=== PATIENT | male | born 1945 | race Hispanic/Latino ===

== ENCOUNTER → 2017-09-16 | Outpatient (CLI) | payer MEDICARE ==
[~2017-09-16] MED LIST: AMLO1CAP11 PO; ASPI-1181 PO; CYAN500 PO; FURO20TA4 PO; IOPAMIDOL-370 75 ML VIAL IV ONE; LISI-617 PO; METF10004 PO; OMEP40CA37 PO; POTA-9 PO; PREG50 PO; PROP60SR PO; ROSU10TA35 PO; TAMS0.4C32 PO; iron PO
== END | disposition home or self-care (01) ==
LOC: RAH 09:45
PROVIDERS: ATTEND Internal Medicine Gastroenterology
DX: K80.20 Calculus of gallbladder without cholecystitis without obstruction (principal); K74.60 Unspecified cirrhosis of liver
CPT/HCPCS: 74170; Q9967

== ENCOUNTER → 2018-03-22 | Outpatient (CLI) | payer MEDICARE ==
[~2018-03-22] MED LIST changes: +GADODIAMIDE 10 MMOL/20 ML ML IV ONE; -IOPAMIDOL-370 75 ML VIAL IV ONE; +METF-446 PO; -METF10004 PO; +ROSU10TA27 PO; -ROSU10TA35 PO
== END | disposition home or self-care (01) ==
LOC: RAH 07:32
PROVIDERS: ATTEND Internal Medicine Gastroenterology
DX: K80.20 Calculus of gallbladder without cholecystitis without obstruction (principal); K76.89 Other specified diseases of liver; K74.60 Unspecified cirrhosis of liver; I10 Essential (primary) hypertension; E11.9 Type 2 diabetes mellitus without complications; I25.10 Atherosclerotic heart disease of native coronary artery without angina pectoris; Z87.891 Personal history of nicotine dependence
CPT/HCPCS: 74183; A9579

== ENCOUNTER 2018-07-03 11:02 | Emergency (ER) | payer MEDICARE ==
[~2018-07-03 11:02] MED LIST changes: -GADODIAMIDE 10 MMOL/20 ML ML IV ONE
[2018-07-03] MEDS ORDERED: ACETAMINOPHEN 325 MG TAB ONE (11:25)
[2018-07-03 11:51] LABS: APPEARANCE,URINE Clear (CLEAR); BILIRUBIN,URINE Negative (NEGATIVE); COLOR,URINE Yellow (YELLOW); GLUCOSE, URINE (UA) Negative (NEGATIVE); KETONES,URINE Negative (NEGATIVE); LEUKOCYTE ESTERASE ,URINE Negative (NEGATIVE); NITRATE,URINE Negative (NEGATIVE); OCCULT BLOOD,URINE Negative (NEGATIVE); PH,URINE 7.5 (5.0-8.0); PROTEIN,URINE Negative (NEGATIVE); UROBILINOGEN,URINE 0.2 mg/dL (0.2-1.0)
== END 2018-07-03 12:26 | disposition home or self-care (01) ==
LOC: EDH 11:02
DX: B34.9 Viral infection, unspecified (principal); I10 Essential (primary) hypertension; E11.9 Type 2 diabetes mellitus without complications; I25.10 Atherosclerotic heart disease of native coronary artery without angina pectoris; Z79.4 Long term (current) use of insulin
CPT/HCPCS: 81003; 87804

== ENCOUNTER 2018-07-10 19:21 | Inpatient (IN) | payer MEDICARE ==
[~2018-07-10] VITALS: Ht 177.8 cm; Wt 92.3 kg
[2018-07-10 20:08] LABS: BASOPHILS % (AUTO) 0.6 % (0.0-5.0); EOSINOPHILS % (AUTO) 1.6 % (0.0-8.0); HEMATOCRIT 24.2 % (42-54); LYMPHOCYTES % (AUTO) 14.1 % (21.0-51.0); MEAN CORPUSCULAR HEMOGLOBIN 28.8 pg (27.0-33.0); MEAN CORPUSCULAR HGB CONC 33.1 g/dL (32.0-36.0); MEAN CORPUSCULAR VOLUME 87.1 fL (79-99); MONOCYTES % (AUTO) 4.4 % (3.0-13.0); NEUTROPHILS % (AUTO) 79.3 % (40.0-77.0); PLATELET COUNT (AUTO) 146 K/uL (130-400); RED BLOOD CELL COUNT(AUTO) 2.78 MIL/uL (4.50-6.20); RED CELL DISTRIBUTION WIDTH 13.3 % (11.0-15.5); WHITE BLOOD COUNT (AUTO) 8.5 K/uL (4.8-10.8)
[2018-07-10 20:36] LABS: ALBUMIN 3.3 g/dL (3.5-5.0); BILIRUBIN,TOTAL 0.3 mg/dL (0.2-1.0); CREATININE 1.1 mg/dL (0.5-1.5); TOTAL PROTEIN, SERUM 6.7 g/dL (6.0-8.3)
[2018-07-10 20:53] LABS: INR 1.05 (0.85-1.15); PARTIAL THROMBOPLASTIN TIME 24.6 SEC (26.3-35.5)
[2018-07-10] MEDS: SODIUM CHLORIDE 0.9% 1000ML 1,000 ML IV SCH (23:33)
[2018-07-10] MEDS ORDERED: DEXTROSE 50%-WATER 50 ML DISP.SYRIN IV PRN (23:45)
[2018-07-10] MEDS ORDERED: ONDANSETRON HCL 4 MG/2 ML VIAL IV PRN (23:45)
[2018-07-10] MEDS ORDERED: GLUCAGON 1MG KIT 1 MG ML IM PRN (23:45)
[2018-07-11] VITALS (22 sets, daily range): BP systolic 104–169; BP diastolic 57–101
[2018-07-11] MEDS: IBUPROFEN 200 MG TAB PO PRN ×3 (03:30→21:04)
[2018-07-11] MEDS: INSULIN HUMULIN R 100 UNIT/ML 3ML SQ SCH ×4 (06:00→21:03)
[2018-07-11] MEDS ORDERED: PANTOPRAZOLE 40 MG/VIAL IVP SCH (09:00)
[2018-07-11] MEDS ORDERED: DIATR MEGLU/DIATRIZOATE SODIUM 30 ML BOTTLE ONE (09:56)
[2018-07-11 09:57] LABS: BASOPHILS % (AUTO) 0.7 % (0.0-5.0); EOSINOPHILS % (AUTO) 2.3 % (0.0-8.0); HEMATOCRIT 21.2 % (42-54); LYMPHOCYTES % (AUTO) 22.4 % (21.0-51.0); MEAN CORPUSCULAR HEMOGLOBIN 29.5 pg (27.0-33.0); MEAN CORPUSCULAR HGB CONC 33.7 g/dL (32.0-36.0); MEAN CORPUSCULAR VOLUME 87.6 fL (79-99); MONOCYTES % (AUTO) 6.5 % (3.0-13.0); NEUTROPHILS % (AUTO) 68.1 % (40.0-77.0); PLATELET COUNT (AUTO) 107 K/uL (130-400); RED BLOOD CELL COUNT(AUTO) 2.41 MIL/uL (4.50-6.20); RED CELL DISTRIBUTION WIDTH 13.3 % (11.0-15.5); WHITE BLOOD COUNT (AUTO) 7.2 K/uL (4.8-10.8)
[2018-07-11 10:03] LABS: POTASSIUM 5.1 mmol/L (3.5-5.1)
[2018-07-11] MEDS: SODIUM CHLORIDE 0.9% 1000ML 1,000 ML IV SCH (10:05)
[2018-07-11] MEDS ORDERED: PROPOFOL 10 MG/ML 20ML VIAL IV ONE (12:38)
[2018-07-11] MEDS ORDERED: LACTULOSE 20 GM/30 ML UDCUP PO SCH ×2 (13:00→14:00)
--- NOTE | 2018-07-11 13:36 | NUR ---
POST PROCEDURE PATIENT RECEIVED FROM PACU VIA HOSPITAL BED IN STABLE CONDITION. DR. ANAYA CALLED WITH FINDINGS AND RECOMMENDATIONS. POST OP VITAL SIGNS HAVE BEEN INITIATED. REORIENTED TO ROOM AND USE OF CALL LIGHT. BED IS IN LOWEST POSITION AND LOCKED.
[2018-07-11] MEDS: PREGABALIN 75 MG CAPSULE PO SCH ×2 (14:08→21:04)
[2018-07-11] MEDS ORDERED: MAGNESIUM CITRATE 296 ML SOLUTION PO SCH ×2 (15:00→16:00)
--- NOTE | 2018-07-11 15:29 | NUR ---
D/C PLAN CM spoke to pt regarding d/c planning. pt is ind. and lives alone. States sister in law assists as needed. Pt asked about provider services arrangements. CM notified to f/u with PCP Dr. Morales post hospital discharge for evaluation and arrangements. Pt states his sister in law has been assisting with transportation. Pt uses wk for ambulation. No other needs verbalized or identified. plan to home. CM to f/u Addendum: 07/11/18 at 1531 by JULIA FLANAGAN CM Amended: Links added.
[2018-07-11] MEDS ORDERED: PEG 3350/NA SULF,BICARB,CL/KCL 4000 ML SOLN PO SCH (16:00)
[2018-07-11] MEDS ORDERED: FERROUS SULFATE 325 MG TABLET.DR PO SCH (17:00)
[2018-07-11] MEDS ORDERED: TAMSULOSIN HCL 0.4 MG CAP.ER.24H PO SCH (21:00)
[2018-07-11] MEDS ORDERED: FUROSEMIDE 20 MG TABLET PO SCH (21:00)
[2018-07-11] MEDS ORDERED: ATORVASTATIN CALCIUM 20 MG TABLET PO SCH (21:00)
[2018-07-11] MEDS ORDERED: INDERAL 60 MG PO SCH (21:00)
[2018-07-12 04:00] VITALS: BP 125/66
[2018-07-12] MEDS: INSULIN HUMULIN R 100 UNIT/ML 3ML SQ SCH (05:51)
[2018-07-12 06:57] LABS: BASOPHILS % (AUTO) 0.7 % (0.0-5.0); EOSINOPHILS % (AUTO) 3.8 % (0.0-8.0); HEMATOCRIT 22.1 % (42-54); LYMPHOCYTES % (AUTO) 31.5 % (21.0-51.0); MEAN CORPUSCULAR HEMOGLOBIN 28.8 pg (27.0-33.0); MEAN CORPUSCULAR VOLUME 87.1 fL (79-99); MONOCYTES % (AUTO) 7.6 % (3.0-13.0); NEUTROPHILS % (AUTO) 56.4 % (40.0-77.0); NUCLEATED RED BLOOD CELLS 0.1 % (0.0-0.19); PLATELET COUNT (AUTO) 111 K/uL (130-400); RED BLOOD CELL COUNT(AUTO) 2.53 MIL/uL (4.50-6.20); RED CELL DISTRIBUTION WIDTH 13.7 % (11.0-15.5); WHITE BLOOD COUNT (AUTO) 6.4 K/uL (4.8-10.8)
[2018-07-12 07:00] LABS: POTASSIUM 4.2 mmol/L (3.5-5.1)
[2018-07-12 08:00] VITALS: BP 139/64
[2018-07-12] MEDS ORDERED: PANT40TA PO (08:34)
[2018-07-12] MEDS ORDERED: AMLODIPINE-BENAZEPRIL 5-10 MG PO SCH (09:00)
[2018-07-12] MEDS ORDERED: LISINOPRIL 5 MG TABLET PO SCH (09:00)
[2018-07-12] MEDS ORDERED: CYANOCOBALAMIN (VITAMIN B-12) 1,000 MCG TABLET PO SCH (09:00)
[2018-07-12] MEDS ORDERED: PANTOPRAZOLE SODIUM 40 MG TABLET.DR PO SCH (09:00)
== END 2018-07-12 14:10 | disposition home or self-care (01) | DRG 378 ==
LOC: EDH 19:21 → EDHIP 07-11 00:10 → 4CH 07-11 00:50
PROVIDERS: ADMIT Hospitalist; ATTEND Hospitalist
PROC: 0W3P8ZZ Control Bleeding in Gastrointestinal Tract, Via Natural or Artificial Opening Endoscopic (ICD-10-PCS; principal; 2018-07-11)
DX: K31.811 Angiodysplasia of stomach and duodenum with bleeding (principal); D62 Acute posthemorrhagic anemia; K63.3 Ulcer of intestine; K29.01 Acute gastritis with bleeding; K74.60 Unspecified cirrhosis of liver; E11.65 Type 2 diabetes mellitus with hyperglycemia; M19.90 Unspecified osteoarthritis, unspecified site; D69.6 Thrombocytopenia, unspecified; E78.5 Hyperlipidemia, unspecified; E87.5 Hyperkalemia; I10 Essential (primary) hypertension; I25.10 Atherosclerotic heart disease of native coronary artery without angina pectoris; K55.20 Angiodysplasia of colon without hemorrhage; K21.0 Gastro-esophageal reflux disease with esophagitis; K63.5 Polyp of colon; Z79.4 Long term (current) use of insulin; Z95.1 Presence of aortocoronary bypass graft; Z82.5 Family history of asthma and other chronic lower respiratory diseases; Z83.3 Family history of diabetes mellitus; Z82.49 Family history of ischemic heart disease and other diseases of the circulatory system; Z80.8 Family history of malignant neoplasm of other organs or systems
CPT/HCPCS: 36415; 43270; 80048; 80053; 82270; 82948; 83036; 85025; 85610; 85730; 86677; 86850; 86900; 86901; 93005; C9113; G0378; J1815; J2704; Q9963

== ENCOUNTER 2018-10-22 07:10 | Day surgery (SDC) | payer MEDICARE ==
[2018-10-20 08:30] VITALS: BP 131/77
[2018-10-20 08:55] LABS: BASOPHILS % (AUTO) 0.5 % (0.0-5.0); EOSINOPHILS % (AUTO) 2.3 % (0.0-8.0); HEMATOCRIT 40.3 % (42-54); LYMPHOCYTES % (AUTO) 21.9 % (21.0-51.0); MEAN CORPUSCULAR HEMOGLOBIN 28.6 pg (27.0-33.0); MEAN CORPUSCULAR HGB CONC 32.9 g/dL (32.0-36.0); MEAN CORPUSCULAR VOLUME 86.9 fL (79-99); MONOCYTES % (AUTO) 5.7 % (3.0-13.0); NEUTROPHILS % (AUTO) 69.6 % (40.0-77.0); PLATELET COUNT (AUTO) 104 K/uL (130-400); RED BLOOD CELL COUNT(AUTO) 4.64 MIL/uL (4.50-6.20); RED CELL DISTRIBUTION WIDTH 14.5 % (11.0-15.5); WHITE BLOOD COUNT (AUTO) 8.3 K/uL (4.8-10.8)
[2018-10-20 09:03] LABS: CREATININE 1.3 mg/dL (0.5-1.5); POTASSIUM 5.4 mmol/L (3.5-5.1)
[2018-10-20 09:15] LABS: INR 0.98 (0.85-1.15); PARTIAL THROMBOPLASTIN TIME 29.2 SEC (26.3-35.5); PROTHROMBIN TIME 10.3 SEC (9.6-11.6)
[2018-10-20 11:00] LABS: APPEARANCE,URINE CLEAR (CLEAR); BILIRUBIN,URINE NEGATIVE (NEGATIVE); COLOR,URINE YELLOW (YELLOW); GLUCOSE, URINE (UA) NEGATIVE (NEGATIVE); KETONES,URINE NEGATIVE (NEGATIVE); LEUKOCYTE ESTERASE ,URINE NEGATIVE (NEGATIVE); NITRATE,URINE NEGATIVE (NEGATIVE); OCCULT BLOOD,URINE NEGATIVE (NEGATIVE); PH,URINE 5.5 (5.0-8.0); PROTEIN,URINE NEGATIVE (NEGATIVE); UROBILINOGEN,URINE 0.2 mg/dL (0.2-1.0)
--- NOTE | 2018-10-21 16:14 | NUR ---
ABNORMAL LABS REPORTED TO KENDRA JAMES, NEW ORDERS RECEIVED.
[2018-10-22] VITALS (11 sets, daily range): BP systolic 112–151; BP diastolic 69–95
[~2018-10-22] VITALS: Ht 179.1 cm; Wt 91.4 kg
[~2018-10-22 07:10] MED LIST changes: -AMLO1CAP11 PO; -ASPI-1181 PO; +ASPI-1197 PO; -FURO20TA4 PO; +FURO40TA5 PO; +INSU3INS3 SQ; +LISI-613 PO; -LISI-617 PO; +METO25TA6 PO; +MONT10TA24 PO; -POTA-9 PO; +POTA10CA44 PO; -PREG50 PO; +PREG75 PO; -PROP60SR PO; +SUCR1TAB2 PO
--- NOTE | 2018-10-22 08:44 | NUR ---
BOTH PATIENT AND FAMILY RECEIVED TEACHING ON PRE AND POST PROCEDURE EXPECTATIONS AND ON IMPORTANCE ON BEING N BED REST POST PROCEDURE TO PREVENT BLEEDING AND TO USE CALL LIGHT IF NEEDED. BOTH PATIENT AND FAMILY VERBALIZED UNDERSTANDING AND AGREED TO CALL.
[2018-10-22] MEDS ORDERED: SODIUM CHLORIDE 0.9% 1000ML 1,000 ML IV ONE (08:54)
[2018-10-22] MEDS ORDERED: NITROGLYCERIN 5 MG/ML 10 ML VIAL IV ONE (09:16)
[2018-10-22] MEDS ORDERED: IOHEXOL 350 MG/ML 100ML INFUS..BTL IV ONE ×2 (09:16→09:28)
[2018-10-22] MEDS ORDERED: IOHEXOL-350 50ML VIAL IV ONE (09:16)
[2018-10-22] MEDS ORDERED: LIDOCAINE HCL 2% 20ML ONE (09:16)
[2018-10-22] MEDS ORDERED: BIVALIRUDIN 250 MG/VIAL IV ONE (09:28)
[2018-10-22] MEDS ORDERED: MIDAZOLAM HCL 1 MG/ML 2ML VIAL ONE (09:28)
[2018-10-22] MEDS ORDERED: SODIUM CHLORIDE 0.9% 1000ML 1,000 ML IV SCH (11:29)
--- NOTE | 2018-10-22 12:28 | NUR ---
PATIENT RETURNED FROM [facility] IN NO DISTRESS, RIGHT GROIN SHOWS NO ACTIVE BLEEDING, BOTH PATIENT AND FAMILY EDUCATED ON IMPORTANCE OF BEING ON BEDREST TO PREVENT BLEEDING FROM RIGHT GROIN. BOTH PATIENT AND FAMILY AGREED TO COMPLY AND CALL FOR ASSISTANCE IF NEEDED.
--- NOTE | 2018-10-22 14:12 | NUR ---
PATIENT IN NO DISTRESS OR DISCOMFORT. RIGHT GROIN SHOWS NO ACTIVE BLEEDING OR HEMATOMA. PATIENT IN NO DISTRESS.
--- NOTE | 2018-10-22 15:27 | NUR ---
PATIENT IN NO DISTRESS, PATIENT STATES FEELING WELL.RIGHT GROIN SHOWS NO ACTIVE BLEEDING OR HEMATOMA.
--- NOTE | 2018-10-22 16:28 | NUR ---
PATIENT STATES FEELING WELL IN NO DISTRESS. PATIENT DENIES ANY CHEST PAIN OR SOB. RIGHT GROIN SHOWS NO ACTIVE BLEEDING TO RIGHT GROIN.
--- NOTE | 2018-10-22 16:59 | NUR ---
REPORT GIVEN TO VERNON FLANAGAN RN, PATIENT IN NO DISTRESS. RIGHT GROIN SHOWS NO ACTIVE BLEEDING NOTED TO RIGHT GROIN.NO CHEST PAIN, NOSOB REPORTED BY PATIENT.
--- NOTE | 2018-10-22 17:00 | NUR ---
REPORT RECEIVED REPORT FROM SARITA JURADO. PT LYING IN BED FLAT. RE-EDUCATED ON THE IMPORTANCE OF KEEPING RIGHT LEG STRAIGHT AND NOT LIFTING HEAD UP OFF OF BED.
--- NOTE | 2018-10-22 18:00 | NUR ---
DISCHARGE ORAL AND WRITTEN DISCHARGE INSTRUCTIONS GIVEN TO PT AND PTS FAMILY. VERBALIZED UNDERSTANDING. SITE TO RIGHT GROIN SOFT TO TOUCH. NO BLEEDING, OOZING NOTED.
== END 2018-10-22 18:15 | disposition home or self-care (01) ==
LOC: DAH 07:10
PROVIDERS: ATTEND Internal Medicine Cardiovascular Disease
DX: I25.810 Atherosclerosis of coronary artery bypass graft(s) without angina pectoris (principal); I34.0 Nonrheumatic mitral (valve) insufficiency; I35.0 Nonrheumatic aortic (valve) stenosis; Z79.899 Other long term (current) drug therapy; Z98.890 Other specified postprocedural states; R07.9 Chest pain, unspecified; R00.1 Bradycardia, unspecified; D64.9 Anemia, unspecified; I11.0 Hypertensive heart disease with heart failure; I50.42 Chronic combined systolic (congestive) and diastolic (congestive) heart failure; K29.70 Gastritis, unspecified, without bleeding; E11.9 Type 2 diabetes mellitus without complications; E78.5 Hyperlipidemia, unspecified; Z79.84 Long term (current) use of oral hypoglycemic drugs
CPT/HCPCS: 36415 ×2; 71045; 80048; 81003; 84132; 85025; 85610; 85730; 93005; 93461; A4606; C1760; C1893; C1894 ×2; J1644; J2250; J3490 ×2; J7030; Q9965; Q9967 ×2; 99156; 99157; J0583

== ENCOUNTER 2018-11-04 22:33 | Inpatient (IN) | payer MEDICARE | END 2018-11-05 14:34 | disposition home or self-care (01) | LOC: EDH 22:33 → EDHIP 11-05 00:07 → 2DH 11-05 03:43 | DX: R07.9 Chest pain, unspecified (principal) ==

== ENCOUNTER 2018-11-12 12:05 | Emergency (ER) | payer MEDICARE ==
[~2018-11-12 12:05] MED LIST changes: -POTA10CA44 PO; +ROPI2TAB29 PO; -SUCR1TAB2 PO
[2018-11-12] MEDS ORDERED: ASPIRIN 325 MG TABLET ONE (12:37)
[2018-11-12 12:38] LABS: BASOPHILS % (AUTO) 0.6 % (0.0-5.0); EOSINOPHILS % (AUTO) 1.8 % (0.0-8.0); HEMATOCRIT 33.2 % (42-54); LYMPHOCYTES % (AUTO) 14.1 % (21.0-51.0); MEAN CORPUSCULAR HEMOGLOBIN 30.1 pg (27.0-33.0); MEAN CORPUSCULAR HGB CONC 34.7 g/dL (32.0-36.0); MEAN CORPUSCULAR VOLUME 86.7 fL (79-99); MONOCYTES % (AUTO) 4.6 % (3.0-13.0); NEUTROPHILS % (AUTO) 78.9 % (40.0-77.0); PLATELET COUNT (AUTO) 109 K/uL (130-400); RED BLOOD CELL COUNT(AUTO) 3.82 MIL/uL (4.50-6.20); RED CELL DISTRIBUTION WIDTH 14.9 % (11.0-15.5); WHITE BLOOD COUNT (AUTO) 8.2 K/uL (4.8-10.8)
[2018-11-12 12:57] LABS: CREATININE 1.3 mg/dL (0.5-1.5); POTASSIUM 5.2 mmol/L (3.5-5.1)
[2018-11-12 13:07] LABS: ALBUMIN 3.7 g/dL (3.5-5.0); BILIRUBIN,TOTAL 0.3 mg/dL (0.2-1.0); TOTAL PROTEIN, SERUM 7.2 g/dL (6.0-8.3)
== END 2018-11-12 16:36 | disposition left against medical advice (07) ==
LOC: EDH 12:05
DX: R07.89 Other chest pain (principal); I25.810 Atherosclerosis of coronary artery bypass graft(s) without angina pectoris; E11.9 Type 2 diabetes mellitus without complications; K74.60 Unspecified cirrhosis of liver; I10 Essential (primary) hypertension; Z79.4 Long term (current) use of insulin; Z87.891 Personal history of nicotine dependence
CPT/HCPCS: 36415; 71045; 80053; 82550; 83874; 84484; 85025; 93005

== ENCOUNTER 2019-04-13 06:19 | Day surgery (SDC) | payer MEDICARE ==
[~2019-04-13] VITALS: Ht 175.3 cm; Wt 95.3 kg
[~2019-04-13 06:19] MED LIST changes: -CYAN500 PO; +CYAN500T63 PO; +LACT10SO PO; +OMEP40CA13 PO; -OMEP40CA37 PO; -ROSU10TA27 PO; +ROSU10TA28 PO; +SODIUM CHLORIDE 0.9% 1000ML 1,000 ML IV ONE
[2019-04-13 07:05] VITALS: BP 147/66
[2019-04-13] MEDS ORDERED: PROPOFOL 10 MG/ML 20ML VIAL IV ONE (08:45)
[2019-04-13] MEDS ORDERED: GLYCOPYRROLATE 0.2 MG/ML 5 ML VIAL ONE (08:49)
[2019-04-13 09:00] VITALS: BP 125/62
[2019-04-13 09:04] VITALS: BP 120/60
[2019-04-13 09:10] VITALS: BP 126/60
[2019-04-13 09:14] VITALS: BP 131/61
== END 2019-04-13 09:26 | disposition home or self-care (01) ==
LOC: ENDO 06:19 → DAH 06:19 → ENDO 09:26 → EDSTATUS 12:47
PROVIDERS: ATTEND Internal Medicine Gastroenterology
DX: K74.60 Unspecified cirrhosis of liver (principal); K29.50 Unspecified chronic gastritis without bleeding; K22.70 Barrett's esophagus without dysplasia; I85.00 Esophageal varices without bleeding; I86.4 Gastric varices; K25.9 Gastric ulcer, unspecified as acute or chronic, without hemorrhage or perforation; D64.9 Anemia, unspecified; E11.9 Type 2 diabetes mellitus without complications; I10 Essential (primary) hypertension; I25.10 Atherosclerotic heart disease of native coronary artery without angina pectoris; E78.5 Hyperlipidemia, unspecified; Z87.891 Personal history of nicotine dependence; Z90.49 Acquired absence of other specified parts of digestive tract; Z98.890 Other specified postprocedural states; Z79.82 Long term (current) use of aspirin; Z79.899 Other long term (current) drug therapy
CPT/HCPCS: 43239; 82948 ×2; 88305; A4215; A4221; A4222; A4223; A4606; A4615; A4663; J2704; J3490; J7030

== ENCOUNTER → 2019-08-31 | Outpatient (CLI) | payer MEDICARE ==
[~2019-08-31] MED LIST changes: -MONT10TA24 PO; +MONT10TA26 PO; -ROPI2TAB29 PO; -SODIUM CHLORIDE 0.9% 1000ML 1,000 ML IV ONE
== END | disposition home or self-care (01) ==
LOC: SHCH 09:59
PROVIDERS: ATTEND Internal Medicine Cardiovascular Disease
DX: I35.0 Nonrheumatic aortic (valve) stenosis (principal)
CPT/HCPCS: 93306; 93356

== ENCOUNTER 2019-09-27 06:03 | Day surgery (SDC) | payer MEDICARE ==
[2019-09-26 14:06] LABS: CREATININE 1.2 mg/dL (0.5-1.5)
[2019-09-26 14:07] LABS: BASOPHILS % (AUTO) 1.1 % (0.0-5.0); EOSINOPHILS % (AUTO) 4.3 % (0.0-8.0); HEMATOCRIT 31.5 % (42-54); LYMPHOCYTES % (AUTO) 21.9 % (21.0-51.0); MEAN CORPUSCULAR HEMOGLOBIN 28.3 pg (27.0-33.0); MEAN CORPUSCULAR HGB CONC 32.4 g/dL (32.0-36.0); MEAN CORPUSCULAR VOLUME 87.5 fL (79-99); MONOCYTES % (AUTO) 8.5 % (3.0-13.0); NEUTROPHILS % (AUTO) 64.2 % (40.0-77.0); PLATELET COUNT (AUTO) 83 K/uL (130-400); RED CELL DISTRIBUTION WIDTH 12.3 % (11.0-15.5); WHITE BLOOD COUNT (AUTO) 3.8 K/uL (4.8-10.8)
[2019-09-26 14:13] LABS: INR 0.99 (0.85-1.15); PROTHROMBIN TIME 10.7 SEC (9.6-11.6)
[2019-09-26 14:41] LABS: APPEARANCE,URINE Clear (CLEAR); BILIRUBIN,URINE Negative (NEGATIVE); COLOR,URINE Yellow (YELLOW); GLUCOSE, URINE (UA) 500 mg/dL (NEGATIVE); KETONES,URINE Negative (NEGATIVE); LEUKOCYTE ESTERASE ,URINE Negative (NEGATIVE); NITRATE,URINE Negative (NEGATIVE); OCCULT BLOOD,URINE Negative (NEGATIVE); PH,URINE 5.5 (5.0-8.0); PROTEIN,URINE Negative (NEGATIVE)
[2019-09-26 14:48] VITALS: BP 137/70
[2019-09-26 14:51] LABS: BACTERIA,URINE None Seen /HPF (None Seen); RBC,URINE 0-1 /HPF (0-1); SQUAMOUS EPITHELIAL CELL,UR None Seen /HPF (0-2); WBC,URINE 0-1 /HPF (0-1)
--- NOTE | 2019-09-26 16:46 | NUR ---
LABS ABNORMAL H&H, PLT REPORTED TO DR. Taiwo DONSI, NO FURTHER ORDERS GIVEN, OK TO PROCEED WITH PROCEDURE. PT HAS HX ALCOHOLIC CIRRHOSIS
[~2019-09-27] VITALS: Ht 177.8 cm; Wt 97.3 kg
[2019-09-27] VITALS (11 sets, daily range): BP systolic 116–168; BP diastolic 57–80
[~2019-09-27 06:03] MED LIST changes: -LACT10SO PO; +folic acid PO
--- NOTE | 2019-09-27 06:10 | NUR ---
PRE OP PT ARRIVED AMBULATORY WITH SISTER AT SIDE. PT IN NO DISTRESS. PT CONNECTED TO CATERER'S AIDE. CALL LIGHT WITH IN REACH AND BED IN LOWEST POSITION. Addendum: 09/27/19 at 0730 by INDIA RAMÍREZ RN RN HEART SOUNDS MUFFLED DUE TO VALVE REGURGITATION
[2019-09-27] MEDS ORDERED: SODIUM CHLORIDE 0.9% 1000ML 1,000 ML IV ONE (06:11)
[2019-09-27] MEDS ORDERED: IRON1CAP6 PO (06:48)
[2019-09-27] MEDS ORDERED: IOHEXOL-350 50ML VIAL IV ONE (07:10)
[2019-09-27] MEDS ORDERED: IOHEXOL 350 MG/ML 100ML INFUS..BTL IV ONE (07:10)
[2019-09-27] MEDS ORDERED: HEPARIN SODIUM 1000UNIT/ML 10ML VIAL ONE (07:10)
[2019-09-27] MEDS ORDERED: BIVALIRUDIN 250 MG/VIAL IV ONE (07:10)
[2019-09-27] MEDS ORDERED: LIDOCAINE HCL 2% 20ML ONE (07:11)
[2019-09-27] MEDS ORDERED: NITROGLYCERIN 2 MG/VIAL VIAL IV ONE (07:15)
[2019-09-27] MEDS ORDERED: MIDAZOLAM HCL 1 MG/ML 2ML VIAL ONE (07:17)
--- NOTE | 2019-09-27 07:20 | NUR ---
LETTERER PT TAKEN TO LETTERER VIA BED IN NO DISTRESS.
[2019-09-27] MEDS ORDERED: SODIUM CHLORIDE 0.9% 1000ML 1,000 ML IV SCH (08:00)
[2019-09-27] MEDS ORDERED: LABETALOL HCL 5 MG/ML 20ML VIAL IV ONE (08:26)
[2019-09-27] MEDS ORDERED: SODIUM CHLORIDE 0.9% 10 ML VIAL IVP SCH (09:00)
[2019-09-27] MEDS ORDERED: GLUCAGON 1MG KIT 1 MG ML IM PRN (09:00)
[2019-09-27] MEDS ORDERED: DEXTROSE 50%-WATER 50 ML DISP.SYRIN IV PRN (09:00)
--- NOTE | 2019-09-27 09:11 | NUR ---
REPORT RECEIVED REPORT FROM JACKSON SESAY RN.
--- NOTE | 2019-09-27 09:20 | NUR ---
FOLLOW UP DR DONIS HERE TO SEE PT AND EXPLAIN FINDINGS TO PT AND SISTER. UNDERSTANDING VOICED. DR JOHNSON CONSULTED BY . Addendum: 09/27/19 at 1242 by INDIA RAMÍREZ RN RN correction on time in to see pt at 0960
--- NOTE | 2019-09-27 09:20 | NUR ---
post cath pt back from [employer] via bed. pt in no distress in supine position
[2019-09-27] MEDS ORDERED: INSULIN HUMULIN R 100 UNIT/ML 3ML SQ SCH (11:30)
--- NOTE | 2019-09-27 13:50 | NUR ---
activity pts hob elevated to 30 degrees. no bleeding noted to site. will continue to monitor pt. sister at bedside
--- NOTE | 2019-09-27 14:20 | NUR ---
md daysi mcdermott in to see pt. pt and sister informed to have procedure done via cath in [place] as per dr pablo. pt and sister voiced understanding
--- NOTE | 2019-09-27 14:30 | NUR ---
report hand off communication given to ivet gray
--- NOTE | 2019-09-27 15:20 | NUR ---
PATIENT DISCHARGED FROM FACILITY VIA WHEELCHAIR BY ROEL GONSALEZ. PATIENT ASSISTED INTO PRIVATE VEHICLE DRIVEN BY FAMILY MEMBER.
== END 2019-09-27 15:20 | disposition home or self-care (01) ==
LOC: DAH 06:03 → EDSTATUS 13:00 → DAH 15:20
PROVIDERS: ATTEND Internal Medicine Cardiovascular Disease
DX: I25.810 Atherosclerosis of coronary artery bypass graft(s) without angina pectoris (principal); I25.10 Atherosclerotic heart disease of native coronary artery without angina pectoris; I70.213 Atherosclerosis of native arteries of extremities with intermittent claudication, bilateral legs; I25.82 Chronic total occlusion of coronary artery; I25.2 Old myocardial infarction; I35.0 Nonrheumatic aortic (valve) stenosis; I34.0 Nonrheumatic mitral (valve) insufficiency; I25.5 Ischemic cardiomyopathy; I10 Essential (primary) hypertension; E11.9 Type 2 diabetes mellitus without complications; E78.5 Hyperlipidemia, unspecified; E66.9 Obesity, unspecified; Z95.1 Presence of aortocoronary bypass graft; Z68.30 Body mass index [BMI] 30.0-30.9, adult; Z79.899 Other long term (current) drug therapy; Z79.4 Long term (current) use of insulin; Z79.01 Long term (current) use of anticoagulants; Z79.82 Long term (current) use of aspirin; Z83.3 Family history of diabetes mellitus; Z82.49 Family history of ischemic heart disease and other diseases of the circulatory system; Z82.5 Family history of asthma and other chronic lower respiratory diseases
CPT/HCPCS: 36415; 71045; 75716; 80048; 81001; 82948 ×2; 85025; 85610; 85730; 93005; 93461; A4215; A4216; A4221; A4222; A4223 ×3; A4606; A4663; C1760 ×2; C1769; C1893; C1894; J1644; J3490 ×3; J7030; Q9965 ×2; Q9967 ×2; J0583; J2250

== ENCOUNTER → 2019-11-28 | Outpatient (CLI) | payer MEDICARE ==
[~2019-11-28] MED LIST changes: -CYAN500T63 PO; +IRON1CAP6 PO; -iron PO
[2019-11-28 12:38] LABS: CREATININE 1.3 mg/dL (0.5-1.5)
== END | disposition home or self-care (01) ==
LOC: LAB 11:20
PROVIDERS: ATTEND Internal Medicine Cardiovascular Disease
DX: I25.10 Atherosclerotic heart disease of native coronary artery without angina pectoris (principal); I35.0 Nonrheumatic aortic (valve) stenosis
CPT/HCPCS: 36415; 82565; 84520

== ENCOUNTER → 2019-11-29 | Outpatient (CLI) | payer MEDICARE ==
[~2019-11-29] MED LIST changes: +IOHEXOL 350 MG/ML 100ML INFUS..BTL IV ONE
== END | disposition home or self-care (01) ==
LOC: RAH 07:33
PROVIDERS: ATTEND Internal Medicine Cardiovascular Disease
DX: K80.20 Calculus of gallbladder without cholecystitis without obstruction (principal); K76.0 Fatty (change of) liver, not elsewhere classified; I35.0 Nonrheumatic aortic (valve) stenosis; I70.0 Atherosclerosis of aorta
CPT/HCPCS: 74174; 75574; Q9967

== ENCOUNTER → 2020-01-24 | Outpatient (CLI) | payer MEDICARE ==
[~2020-01-24] MED LIST changes: +CEFTRIAXONE SODIUM 1 GM ONE; -IOHEXOL 350 MG/ML 100ML INFUS..BTL IV ONE; +MORPHINE SULFATE 4 MG/1ML SYG ONE; +ONDANSETRON HCL 4 MG/2 ML VIAL ONE
== END | disposition home or self-care (01) ==
LOC: SHCH 12:20
PROVIDERS: ATTEND Internal Medicine Cardiovascular Disease
DX: I35.0 Nonrheumatic aortic (valve) stenosis (principal); I05.9 Rheumatic mitral valve disease, unspecified; Z95.2 Presence of prosthetic heart valve
CPT/HCPCS: 93306; 93356; J0696; J2270; J2405

== ENCOUNTER 2020-05-15 05:36 | Day surgery (SDC) | payer MEDICARE ==
[2020-05-15] VITALS (8 sets, daily range): BP systolic 102–132; BP diastolic 54–72
[~2020-05-15] VITALS: Ht 175.3 cm; Wt 97.5 kg
[~2020-05-15 05:36] MED LIST changes: -CEFTRIAXONE SODIUM 1 GM ONE; -MORPHINE SULFATE 4 MG/1ML SYG ONE; -ONDANSETRON HCL 4 MG/2 ML VIAL ONE
[2020-05-15] MEDS ORDERED: SODIUM CHLORIDE 0.9% 1000ML 1,000 ML IV ONE (06:20)
[2020-05-15] MEDS ORDERED: IBUP-2784 PO (07:09)
[2020-05-15] MEDS ORDERED: IRON1CAP3 PO (07:09)
[2020-05-15] MEDS ORDERED: TRAM100C3 PO (07:09)
[2020-05-15] MEDS ORDERED: MIDAZOLAM HCL 1 MG/ML 2ML VIAL ONE (07:56)
[2020-05-15] MEDS ORDERED: LIDOCAINE HCL 1% 20 ML VIAL ONE (07:56)
[2020-05-15] MEDS ORDERED: PROPOFOL 10 MG/ML 20ML VIAL IV ONE (07:56)
--- NOTE | 2020-05-15 08:15 | NUR ---
Pt received Pt received via stretcher accompanied by SARITA Garza. Pt sleeping comfortably with o2 via face mask. VS wnl.
[2020-05-15] MEDS ORDERED: CLOP75TA32 PO (08:38)
--- NOTE | 2020-05-15 08:45 | NUR ---
D/C Pt prepared for discharge. Provider at bedside. Verbal instructions given to provider and pt. Provider was given written instructions to follow. Informed both of needing to resume Plavix in 72hrs. Verbalized understanding. Informed them of follow up appointment date and time. Pt was taken to private vehicle via wheelchair. All concerns addressed and questions answered.
== END 2020-05-15 08:35 ==
LOC: DAH 05:36 → ENDO 05:36
PROVIDERS: ATTEND Internal Medicine Gastroenterology
DX: I85.00 Esophageal varices without bleeding (principal); K29.71 Gastritis, unspecified, with bleeding; K74.60 Unspecified cirrhosis of liver; K22.70 Barrett's esophagus without dysplasia
CPT/HCPCS: 43239; 43255; 82948 ×2; 87426; 88305; 88342; 93005; A4215; A4221; A4222; A4223; A4606; A4620; A4663; J2250; J2704; J7030